=== PATIENT | male | born 1930 | race Caucasian/White ===

== ENCOUNTER 2020-09-12 11:01 | Day surgery (SDC) | payer BC, MEDICARE ==
[~2020-09-12] VITALS: Ht 182.9 cm; Wt 67.7 kg
[~2020-09-12 11:01] MED LIST: FURO-93 PO; LOSA25TA25 PO; MELA5TAB14 PO; RIVA10TA2 PO; RIVA15TA PO; SPIR25TA5 PO
[2020-09-12 11:57] VITALS: BP 118/79
[2020-09-12] MEDS ORDERED: PLEASE ENTER HEIGHT AND WEIGHT MC SCH (12:00)
[2020-09-12] MEDS ORDERED: SODIUM CHLORIDE 0.9% 1,000 ML IV SCH (12:00)
[2020-09-12] MEDS ORDERED: FENTANYL PF 100 MCG/2ML ONE (14:14)
[2020-09-12] MEDS ORDERED: NALOXONE 1 MG/ML, 2ML ONE (14:15)
[2020-09-12] MEDS ORDERED: MIDAZOLAM 1 MG/ML, 5ML ONE (14:15)
[2020-09-12] MEDS ORDERED: FLUMAZENIL 0.1 MG/1 ML, 5ML ONE (14:15)
[2020-09-12] MEDS ORDERED: LIDOCAINE 1%, 20ML ONE (14:20)
[2020-09-12] MEDS ORDERED: VISIPAQUE 270 MG/ML, 50ML BOTTLE ONE (15:34)
== END 2020-09-12 17:00 | disposition home or self-care (01) ==
LOC: OUT 11:01
PROVIDERS: ATTEND Urology
DX: N32.0 Bladder-neck obstruction (principal); I11.0 Hypertensive heart disease with heart failure; I50.9 Heart failure, unspecified; I48.91 Unspecified atrial fibrillation; Z79.01 Long term (current) use of anticoagulants; Z79.899 Other long term (current) drug therapy; Z87.440 Personal history of urinary (tract) infections; Z87.448 Personal history of other diseases of urinary system
CPT/HCPCS: 51102; 75989; 77002; 99156; 99157; C1725; C1769; J2250; J3010; Q9966; 51703; J2310